=== PATIENT | male | born 1990 | race African-American/Black ===

== ENCOUNTER 2021-04-02 22:18 | Inpatient (IN) | payer MEDICAID, OTHER ==
[~2021-04-02] VITALS: Ht 188 cm; Wt 112.7 kg
[~2021-04-02 22:18] MED LIST: LEVO500T2 PO
[2021-04-03] MEDS ORDERED: ACETAMINOPHEN 325MG TABLET PO ONE (02:30)
[2021-04-03] MEDS ORDERED: SODIUM CHLORIDE 0.9% 1000ML BAG (SEPSIS BOLUS) IV ONE (02:30)
[2021-04-03 03:09] LABS: HEMOGLOBIN. 15.6 g/dL (14.0-18.0); MEAN CORPUSCULAR HEMOGLOBIN 28.3 pg (28.0-32.0); MEAN CORPUSCULAR VOLUME 83.4 fL (80.0-94.0); MEAN PLATELET VOLUME 7.6 fl (7.4-10.4); PLATELET 327 x1000/uL (130-400); RED BLOOD CELL COUNT 5.51 mill/uL (4.7-6.1); RED CELL DISTRIBUTION WIDTH 13.2 % (11.6-14.6)
[2021-04-03 03:13] LABS: CHLORIDE 97 mEq/L (98-107)
[2021-04-03 03:31] LABS: INR 1.1; PROTHROMBIN TIME 11.6 sec (9.6-11.0)
[2021-04-03] MEDS ORDERED: AZITHROMYCIN 500MG/250ML 250 ML IV ONE (03:45)
[2021-04-03] MEDS ORDERED: CEFTRIAXONE 1 G PREMIX 50 ML IV ONE (03:45)
[2021-04-03] MEDS ORDERED: MORPHINE SULFATE 4 MG/ML CPJ (NOT FOR IM USE) IV ONE (05:15)
[2021-04-03 05:38] LABS: CLARITY URINE CLEAR (CLEAR); COLOR URINE YELLOW (YELLOW); KETONES URINE TRACE (NEGATIVE); LEUKOCYTE ESTERASE URINE TRACE (NEGATIVE); NITRITE URINE NEGATIVE (NEGATIVE); OCCULT BLOOD URINE NEGATIVE (NEGATIVE); PH URINE 6.5 (4.5-8.0); PROTEIN URINE NEGATIVE (NEGATIVE); SPECIFIC GRAVITY URINE 1.024 (1.005-1.030)
[2021-04-03 06:37] LABS: PLATELET ESTIMATE NORMAL
[2021-04-03 09:45] VITALS: BP 127/80
[2021-04-03] MEDS ORDERED: ONDANSETRON HCL 4MG/2ML INJ IV PRN (09:45)
[2021-04-03] MEDS ORDERED: GUAIFENESIN 200MG/10ML SUGAR FREE UDC PO PRN (09:45)
[2021-04-03] MEDS ORDERED: MAGNESIUM/ALUMINUM HYDROXIDE/SIMETHICONE 30ML UDC PO PRN (09:45)
[2021-04-03] MEDS ORDERED: CLONIDINE 0.1MG TABLET PO PRN (09:45)
[2021-04-03] MEDS ORDERED: ALBUTEROL 6.7GM HFA INHALER ORI PRN (09:45)
[2021-04-03] MEDS ORDERED: KETOROLAC 15MG/ML VIAL IV PRN (09:45)
[2021-04-03] MEDS ORDERED: DOCUSATE SODIUM 100MG CAPSULE PO PRN (09:45)
[2021-04-03 09:51] VITALS: BP 127/80
[2021-04-03] MEDS: ZINC SULFATE 220 MG ( 50 ) CAPSULE PO SCH (10:45)
[2021-04-03] MEDS: ASCORBIC ACID 500 MG TABLET PO SCH ×2 (10:45→20:46)
[2021-04-03] MEDS: FAMOTIDINE 20MG TABLET PO SCH ×2 (10:45→20:46)
[2021-04-03 12:03] VITALS: BP 147/87
[2021-04-03 12:30] LABS: *BARBITURATES SCREEN URINE NEGATIVE (NEGATIVE)
[2021-04-03 12:31] LABS: *AMPHETAMINES SCREEN URINE PRESUMTIVE POSITIVE (NEGATIVE); *BENZODIAZEPINES SCREEN URINE NEGATIVE (NEGATIVE); *COCAINE SCREEN URINE NEGATIVE (NEGATIVE); METHADONE URINE SCREEN NEGATIVE (NEGATIVE); OPIATES URINE SCREEN PRESUMTIVE POSITIVE (NEGATIVE)
[2021-04-03 12:33] LABS: PHENCYCLIDINE URINE SCREEN NEGATIVE (NEGATIVE)
[2021-04-03 12:40] LABS: CANNABINOID URINE SCREEN NEGATIVE (NEGATIVE)
[2021-04-03] MEDS: ALBUTEROL 6.7GM HFA INHALER ORI SCH ×2 (15:15→20:46)
[2021-04-03 16:05] VITALS: BP 109/67
[2021-04-03] MEDS: ACETAMINOPHEN 325MG TABLET PO PRN (18:30)
[2021-04-03 20:00] VITALS: BP 107/59
[2021-04-03] MEDS ORDERED: ZOLPIDEM TARTRATE 5MG TABLET PO PRN (21:00)
[2021-04-03 21:19] LABS: CREATINE KINASE MB FRACTION 3.4 ng/mL (0.5-3.6)
[2021-04-03] MEDS ORDERED: CEFTRIAXONE 1 G PREMIX 50 ML IV SCH (22:00)
[2021-04-03] MEDS: ASPIRIN 325MG EC TABLET PO SCH (23:57)
[2021-04-03] MEDS: ENOXAPARIN 120MG/0.8ML SYR SUBCUT SCH (23:58)
[2021-04-03] MEDS: AZITHROMYCIN 500 MG in DEXT 5% WATER 250 ML IV SCH (23:59)
[2021-04-03] MEDS: CEFTRIAXONE 1,000 MG in DEXTROSE 5% WATER 50 ML IV SCH (23:59)
[2021-04-04] VITALS: BP 125/75
[2021-04-04] MEDS: ACETAMINOPHEN 325MG TABLET PO PRN ×3 (02:21→23:02)
[2021-04-04] MEDS: ALBUTEROL 6.7GM HFA INHALER ORI SCH ×4 (03:00→21:33)
[2021-04-04 06:00] VITALS: BP 123/81
[2021-04-04 08:00] VITALS: BP 126/80
[2021-04-04] MEDS: ASPIRIN 325MG EC TABLET PO SCH (09:07)
[2021-04-04] MEDS: ASCORBIC ACID 500 MG TABLET PO SCH ×2 (09:07→21:22)
[2021-04-04] MEDS: FAMOTIDINE 20MG TABLET PO SCH ×2 (09:07→21:22)
[2021-04-04] MEDS: ZINC SULFATE 220 MG ( 50 ) CAPSULE PO SCH (09:07)
[2021-04-04] MEDS: ENOXAPARIN 120MG/0.8ML SYR SUBCUT SCH ×2 (09:07→21:23)
[2021-04-04 09:33] LABS: BASOPHILS % 0.2 % (0.0-2.0); EOSINOPHILS % 0.1 % (0.0-5.0); HEMATOCRIT. 43.4 % (42.0-52.0); HEMOGLOBIN. 14.3 g/dL (14.0-18.0); LYMPHOCYTES % 9.3 % (20.0-50.0); MEAN CORPUSCULAR HEMOGLOBIN 27.8 pg (28.0-32.0); MEAN CORPUSCULAR VOLUME 84.6 fL (80.0-94.0); MEAN PLATELET VOLUME 7.7 fl (7.4-10.4); MONOCYTES % 6.5 % (2.0-8.0); NEUTROPHILS % 83.9 % (40.0-76.0); PLATELET 283 x1000/uL (130-400); RED BLOOD CELL COUNT 5.13 mill/uL (4.7-6.1); RED CELL DISTRIBUTION WIDTH 13.9 % (11.6-14.6)
[2021-04-04 09:38] LABS: PHOSPHORUS 1.2 mg/dL (2.5-4.9)
[2021-04-04 12:00] VITALS: BP 113/82
[2021-04-04 16:00] VITALS: BP 121/79
[2021-04-04 20:00] VITALS: BP 117/81
[2021-04-04] MEDS: AZITHROMYCIN 500 MG in DEXT 5% WATER 250 ML IV SCH (22:35)
[2021-04-04] MEDS: CEFTRIAXONE 1,000 MG in DEXTROSE 5% WATER 50 ML IV SCH (22:35)
[2021-04-05] VITALS: BP 117/81
[2021-04-05] MEDS: ALBUTEROL 6.7GM HFA INHALER ORI SCH ×4 (04:01→21:54)
[2021-04-05 04:10] VITALS: BP 117/72
[2021-04-05 08:00] VITALS: BP 121/75
[2021-04-05] MEDS: ASPIRIN 325MG EC TABLET PO SCH (08:36)
[2021-04-05] MEDS: ENOXAPARIN 120MG/0.8ML SYR SUBCUT SCH ×2 (08:36→21:53)
[2021-04-05] MEDS: ZINC SULFATE 220 MG ( 50 ) CAPSULE PO SCH (08:36)
[2021-04-05] MEDS: FAMOTIDINE 20MG TABLET PO SCH ×2 (08:36→21:54)
[2021-04-05] MEDS: ASCORBIC ACID 500 MG TABLET PO SCH ×2 (08:36→21:54)
[2021-04-05 12:00] VITALS: BP 114/75
[2021-04-05 15:59] VITALS: BP 119/79
[2021-04-05] MEDS: CEFTRIAXONE 1,000 MG in DEXTROSE 5% WATER 50 ML IV SCH (21:54)
[2021-04-05] MEDS: AZITHROMYCIN 500 MG in DEXT 5% WATER 250 ML IV SCH (21:55)
[2021-04-05 22:00] VITALS: BP 120/73
[2021-04-06] VITALS: BP 111/71
[2021-04-06 04:00] VITALS: BP 109/67
[2021-04-06] MEDS: ALBUTEROL 6.7GM HFA INHALER ORI SCH ×3 (04:35→20:20)
[2021-04-06 08:00] VITALS: BP 111/72
[2021-04-06] MEDS: ASCORBIC ACID 500 MG TABLET PO SCH ×2 (08:22→20:19)
[2021-04-06] MEDS: ASPIRIN 325MG EC TABLET PO SCH (08:22)
[2021-04-06] MEDS: FAMOTIDINE 20MG TABLET PO SCH ×2 (08:22→20:18)
[2021-04-06] MEDS: ENOXAPARIN 120MG/0.8ML SYR SUBCUT SCH ×2 (08:22→20:19)
[2021-04-06] MEDS: ZINC SULFATE 220 MG ( 50 ) CAPSULE PO SCH (08:33)
[2021-04-06 12:00] VITALS: BP 120/80
[2021-04-06 16:00] VITALS: BP 115/79
[2021-04-06 20:00] VITALS: BP 118/62
[2021-04-06] MEDS: AZITHROMYCIN 500 MG TABLET PO SCH (20:18)
[2021-04-06] MEDS: CEFTRIAXONE 1,000 MG in DEXTROSE 5% WATER 50 ML IV SCH (22:34)
[2021-04-07] VITALS (7 sets, daily range): BP systolic 109–123; BP diastolic 66–75
[2021-04-07] MEDS: ALBUTEROL 6.7GM HFA INHALER ORI SCH ×3 (02:42→20:24)
[2021-04-07] MEDS: ENOXAPARIN 120MG/0.8ML SYR SUBCUT SCH ×2 (08:50→20:24)
[2021-04-07] MEDS: ZINC SULFATE 220 MG ( 50 ) CAPSULE PO SCH (08:50)
[2021-04-07] MEDS: ASPIRIN 325MG EC TABLET PO SCH (08:50)
[2021-04-07] MEDS: ASCORBIC ACID 500 MG TABLET PO SCH ×2 (08:50→20:24)
[2021-04-07] MEDS: FAMOTIDINE 20MG TABLET PO SCH ×2 (08:50→20:24)
[2021-04-07] MEDS ORDERED: ASCO500C18 PO (18:18)
[2021-04-07] MEDS ORDERED: ASCO-339 MT (18:18)
[2021-04-07] MEDS ORDERED: CEPH500C2 MT (18:19)
[2021-04-07] MEDS ORDERED: ASPI-1497 PO (18:19)
[2021-04-07] MEDS ORDERED: ZINC220C6 (18:20)
[2021-04-07] MEDS: AZITHROMYCIN 500 MG TABLET PO SCH (20:24)
== END 2021-04-07 23:50 | disposition home or self-care (01) | DRG 720 ==
LOC: ER 22:18 → 7WST 04-03 05:12 → ENRESERV 04-03 07:34
PROVIDERS: ADMIT Internal Medicine; ATTEND Internal Medicine
DX: A41.9 Sepsis, unspecified organism (principal); J96.00 Acute respiratory failure, unspecified whether with hypoxia or hypercapnia; I21.A1 Myocardial infarction type 2; U07.1 COVID-19; K56.7 Ileus, unspecified; R59.0 Localized enlarged lymph nodes; E66.9 Obesity, unspecified; F15.10 Other stimulant abuse, uncomplicated; Z60.2 Problems related to living alone; F17.210 Nicotine dependence, cigarettes, uncomplicated; Z78.9 Other specified health status; Z79.2 Long term (current) use of antibiotics; Z79.899 Other long term (current) drug therapy; Z71.51 Drug abuse counseling and surveillance of drug abuser; Z71.6 Tobacco abuse counseling; Z68.31 Body mass index [BMI] 31.0-31.9, adult
CPT/HCPCS: 36415; 71045; 74176; 80053; 80061; 80305; 80307; 81003; 82550; 82553; 83036; 83605; 83615; 83735; 83880; 84100; 84145; 84443; 84484; 85025; 93005; 93970; 99285; J0456; J0696; J1650; J2270; J7030; J7060; U0003; U0005

== ENCOUNTER 2022-01-29 16:25 | Emergency (ER) | payer MEDICAID ==
[~2022-01-29] VITALS: Ht 185.4 cm; Wt 89.0 kg
[~2022-01-29 16:25] MED LIST changes: +ASCO500C18 PO; +ASPI-1497 PO; +CEPH500C2 MT; -LEVO500T2 PO; +ZINC220C6
[2022-01-29 16:28] VITALS: BP 132/73
[2022-01-29] MEDS ORDERED: IBUPROFEN 400MG TABLET PO ONE (17:15)
== END 2022-01-29 17:58 | disposition left against medical advice (07) ==
LOC: ER 16:25
DX: Z53.21 Procedure and treatment not carried out due to patient leaving prior to being seen by health care provider (principal); R51.9 Headache, unspecified; Z20.822 Contact with and (suspected) exposure to COVID-19
CPT/HCPCS: 87426; C9803